=== PATIENT | female | born 1965 ===

== ENCOUNTER 2020-04-28 13:43 | Emergency (ER) | payer BC ==
[~2020-04-28] VITALS: Ht 177.8 cm; Wt 88.8 kg
[2020-04-28 14:20] LABS: BASOPHILS # (AUTO) 0.04 x10^3/uL (0-0.1); BASOPHILS % (AUTO) 1 % (0-1); EOSINOPHILS # (AUTO) 0.11 x10^3/uL (0-0.4); EOSINOPHILS % (AUTO) 2 % (1-7); LYMPHOCYTES # (AUTO) 2.29 x10^3/uL (1-3.4); LYMPHOCYTES % (AUTO) 36 % (22-44); MD NO; MEAN CORPUSCULAR HEMOGLOBIN 29.4 pg (27.0-34.8); MEAN CORPUSCULAR HGB CONC 32.4 g/dL (32.4-35.8); MEAN PLATELET VOLUME 8.5 fL (7.4-10.4); MONOCYTES # (AUTO) 0.45 x10^3/uL (0.2-0.8); MONOCYTES % (AUTO) 7 % (2-9); NEUTROPHILS # (AUTO) 3.52 x10^3/uL (1.8-6.8); NEUTROPHILS % (AUTO) 55 % (42-75); PLATELET COUNT 276 x10^3/uL (130-400); RED BLOOD COUNT 4.62 x10^6/uL (3.82-5.3)
[2020-04-28 14:34] LABS: ALBUMIN 4.1 g/dL (3.4-5.0); ANION GAP 6 mmol/L (5-15); CALCIUM 9.1 mg/dL (8.5-10.1); CHLORIDE 107 mmol/L (98-107)
--- NOTE | 2020-04-28 14:36 | NUR ---
TASK RN: PT REPORTS INTERMITTENT LEFT AND SUBSTERNAL CHEST "WEIRD SENSATION". DENIES ASSOCIATED N/V/FEVER/SOB/PRODUCTIVE COUGH/DIAPHORESIS. DENIES PE RISK FACTORS. +COVID EXPOSURE WITH TEST PENDING. BP/SPO2/ECG MONITORING IN PLACE. NSR ON MONITOR. REPORT TO PRIMARY RNVICKI.
[2020-04-28 14:40] LABS: ALANINE AMINOTRANSFERASE 45 U/L (12-78); ALKALINE PHOSPHATASE 118 U/L (45-117); BILIRUBIN,TOTAL 0.4 mg/dL (0.2-1.0); TOTAL PROTEIN 7.7 g/dL (6.4-8.2); TROPONIN I < 0.015 ng/mL (0.000-0.045)
--- NOTE | 2020-04-28 15:24 | NUR ---
PT RESTING ON GURJOSE AT THIS TIME, VSS, NAD NOTED
[2020-04-28 16:38] VITALS: BP 120/64
== END 2020-04-28 17:58 | disposition home or self-care (01) ==
LOC: ED 17:16
DX: R07.89 Other chest pain (principal); R51 Headache; R05 Cough; R94.31 Abnormal electrocardiogram [ECG] [EKG]
CPT/HCPCS: 36415; 71045; 80053; 84484; 85025; 93005; 99285